=== PATIENT | female | born 1985 | race Caucasian/White ===

== ENCOUNTER 2018-06-12 08:11 | Observation (INO) | payer OTHER, SELFPAY ==
[2014-07-04 10:55] VITALS: BMI 28.0
[2018-06-12 08:06] VITALS: BMI 25.8
[2018-06-12] MEDS: Lactated Ringers 1,000 ML 999 ML IV (08:10)
[2018-06-12] MEDS: Betamethasone/Betamethasone 30 MG/5 ML Vial 12 MG IM (09:00)
[2018-06-12 10:55] VITALS: BP 103/61; PULSE 95; RESP 16; TEMP 37.1; O2SAT 98
[2018-06-12 13:04] LABS: Group B Strep DNA By PCR Negative (Negative); Internal Control PASS; Specimen Processing Control PASS
[2018-06-12 13:05] LABS: Probe Check PASS
--- NOTE | 2018-06-14 13:53 | OB.TRI.NOTE ---
History of Present Illness Date of Service: 06/12/18 Was patient seen by the physician?: Yes Reason For Visit: R/O LABOR History of Present Illness: 32-year-old female who reports contractions since 2 AM. Uncomfortable enough that she is having a hard time sleeping through them. No vaginal bleeding or leaking of fluid. Good movement. No threatened labor previously. History of previous section and plans repeat . 36 weeks ngestation Allergies No Known Allergies Allergy (Verified 06/12/18 08:08) Laboratory Studies: Laboratory Tests 06/12/18 Range/Units 10:45 Group B Strep DNA Negative (Negative) Specimen Comment Not Reportable Physical Exam Vitals: Vital Signs Temp Pulse Resp BP Pulse Ox 98.7 F 95 16 103/61 98 06/12/18 10:55 06/12/18 10:55 06/12/18 10:55 06/12/18 10:55 06/12/18 10:55 General: Alert, Cooperative, No apparent distress Abdomen: Soft, Non Tender, Non-Distended, Gravid, Appropriate for Gestational Age Estimated gestational size: Appropriate for gestational size Presentation: Cephalic Cervix Dilation (cm): 1 Station: -2 Effacement (%): 50 NST - FHR Rate Baby A Baseline: Normal baseline Variability:: Moderate Accelerations:: 15 x 15 Decelerations:: None NST Reactive:: Yes FHR Category:: Category I Uterine Activity:: Contractions q. 3-4 minutes Impression/Plan 32-year-old multigravida female at 36 weeks gestation with history of previous with threatened labor. Contractions been going on since 2 AM. They have not significantly worsened or improved. She has had no cervical change. heart tones are reassuring. At this point I discussed with the patient I do not feel she is in active labor. Discharge home, push fluids, call if spontaneous rupture membranes or worsening of contractions. Otherwise follow-up in the office in 2-7 days or as needed. Patient is comfortable with this plan. Received 1 dose of betamethasone, if contractions continue would give second dose otherwise will defer this as patient is already past 36 weeks.
== END 2018-06-12 11:10 | disposition home or self-care (01) ==
LOC: WPOUT 09:34
PROVIDERS: Admitting Provider Obstetrics & Gynecology; Family Provider Obstetrics & Gynecology; Visit Provider Obstetrics & Gynecology
DX: O60.03 Preterm labor without delivery, third trimester (principal); Z3A.36 36 weeks gestation of pregnancy; O34.219 Maternal care for unspecified type scar from previous cesarean delivery; N85.8 Other specified noninflammatory disorders of uterus
CPT/HCPCS: 96360; 96361 ×2; 59025; 59050; 76815; 87081; 87653; 96372; 99218; J7120; G0378; J0702

== ENCOUNTER 2018-07-05 09:00 | Inpatient (IN) | payer OTHER, SELFPAY ==
--- NOTE | 2018-07-03 14:23 | PCM.HP.BLA ---
History and Physical Date of Admission: 07/05/18 Pre-Op History and Physical ? HPI: The patient is a 32 year old female presenting for pre-operative visit. She is scheduled for?, for?39 3/7 weeks , previous c/s on?07/05/18. ??Procedure discussed along with risks, benefits and complications. ?Other alternatives discussed for management. Consent form signed??Yes.? PAST?MEDICAL?HISTORY PAST MEDICAL HISTORY Diagnosis Date ? Anemia complicating 04/18/2014 ? Miscarriage 04/2012 ? ? PAST?SURGICAL?HISTORY PAST SURGICAL HISTORY Procedure Laterality Date ? DELIVERY ONLY ? 07/04/14 ? , low transverse ? D&C, DIAG AND/OR THERAPEUTIC ? 04/13/2012 ? Dilation & curettage ? PAST SURGICAL HISTORY OF ? ? ? WISDOM TEETH ? ? CURRENT?MEDICATIONS ? Current Outpatient Medications: lanolin/mineral oil/sod borate (SKIN OILS TOPICAL) Apply to affected area. Essential oil with wild yam applied topically Disp: Rfl: DOCOSAHEXANOIC ACID ( DHA ORAL) Take ?by mouth. Disp: Rfl: VIT/IRON FUMARATE/FA ( ORAL) Take ?by mouth. ? Disp: Rfl: FOLIC ACID ORAL Take ?by mouth. ? Disp: Rfl: ? No current facility-administered medications for this visit.? ? ALLERGIES:?Patient has no known allergies. ? PERSONAL HISTORY:? SOCIAL?HISTORY Social History ??Socioeconomic History ?Marital status: ?Spouse name: Elia ?Number of children: 1 ?Years of education: 12 ?Highest education level: Not on file ??Social Needs ?Financial resource strain: Not on file ?Food insecurity - worry: Not on file ?Food insecurity - inability: Not on file ?Transportation needs - medical: Not on file ?Transportation needs - non-medical: Not on file ??Occupational History ?Occupation: SALES ?Employer: [employer] ??Tobacco Use ?Smoking status: Never Smoker ?Smokeless tobacco: Never Used ??Substance and Sexual Activity ?Alcohol use: Yes ?Comment: Rarely, not while ?Drug use: No ?Sexual activity: Yes ?Partners: Male ? control/protection: None ??Other Topics ?Concerns: ?Not on file ??Social History Narrative ?Not on file ? FAMILY HISTORY:? FAMILY?HISTORY FAMILY HISTORY Problem Relation Age of Onset ? No Known Problems Mother ? ? No Known Problems Father ? ? No Known Problems Sister ? ? No Known Problems Sister ? ? No Known Problems Brother ? ? Hypertension Maternal Grandmother ? ? Arthritis Maternal Grandmother ? ? No Known Problems Maternal Grandfather ? ? Stroke Paternal Grandmother ? ? No Known Problems Paternal Grandfather ? ? No Known Problems Son ? ? REVIEW OF SYMPTOMS: GENERAL: denies fevers or chills ENDOCRINOLOGY: has not been on steroids Cardiology : denies palpitations or chest pain Respiratory: denies SOB or cough, some normal PAZ from Hematology: denies history of prolonged bleeding or easy bruising or VTE Allergy: Denies history of personal or family history of allergy to anesthesia ? ? PHYSICAL EXAMINATION: ? VITALS:?Last menstrual period 10/07/2017. ? GENERAL:??The patient is well nourished, well hydrated in no acute distress. ?, The patient is oriented to time, place, and person. NECK:?Supple. No lynphadenopathy, normal thyroid, no thyromegaly. LUNGS:?Clear to auscultation bilaterally. no wheezes, rhonchi or rales HEART:?Regular rate and rhythm, Normal heart sounds and No murmurs or gallops abd- soft, nontender, gravid ? IMPRESSION:?39 3/7 weeks gestation on scheduled c/s on 07/05/18 ? PLAN:???The risks/benefits/alternatives and personal involved for the planned??were reviewed with the patient. Her questions were answered to her satisfaction and she desires to proceed. ?Consent was signed. ?I reviewed with her postop instructions and expectations. ? ? I have reviewed and updated past medical and surgical history, medications and allergies? This H&P was performed in my office 07/03/18 Vee Fuchs M.D.
[2018-07-05] VITALS (17 sets, daily range): BP systolic 100–111; BP diastolic 45–76; PULSE 69–88; RESP 12–18; TEMP 36.2–37.1; O2SAT 95–99; BMI 27.3
[2018-07-05] MEDS: Lactated Ringers 1,000 ML 999 ML IV (09:40)
[2018-07-05 09:57] LABS: Absolute Lymphocyte Count 1.71 X10^3/ul (0.83-4.51); Absolute Neutrophil Count 7.6 X10^3/uL (2.0-7.7); Eosinophil# 0.08 X10^3/uL; Eosinophils% 0.8 % (0-5); Hematocrit 33.3 % (37-47); Lymphocyte # 1.71 X10^3/ul (4.0); Lymphocyte % 17.2 % (19-41); Mean Corpuscular Hgb 30.7 pg (27.0-32.0); Mean Platelet Vol. 10.2 fl (6.2-12.0); Monocyte# 0.54 X10^3/uL; Monocyte% 5.4 % (0-10); Neutrophil % 76.2 % (47-70); Platelet Count 235 K/mm3 (150-450); RBC Distribution Width CV 14.3 % (11.6-14.6); RBC Distribution Width SD 48.4 fl (35.1-43.9); Red Blood Count 3.58 M/mm3 (4.2-5.4)
[2018-07-05 10:00] LABS: POSITIVE COUNT NO; POSITIVE DIFFERENTIAL NO; POSITIVE MORPHOLOGY NO
[2018-07-05] MEDS: Lactated Ringers 1,000 ML 150 ML IV (10:41)
[2018-07-05] MEDS: Cefazolin 2 GM in 0.9% Normal Saline 100 ML IV (12:06)
[2018-07-05] MEDS: Sodium Citrate/Citric Acid 30 ML UDC PO (12:06)
[2018-07-05] MEDS: Oxytocin 30 units/NS 500 ml 30 UNITS/500 ML IV.SOLN 167 UNITS IV (12:46)
[2018-07-05] MEDS: Ketorolac 30 MG/ML Syringe IV ×2 (13:15→18:51)
[2018-07-05] MEDS: Lactated Ringers 1,000 ML 100 ML IV (17:16)
--- NOTE | 2018-07-05 17:16 | PCM.OPRPT ---
Delivery Classification: Scheduled Final MANUEL: 07/09/18 Gestational age: 39 Weeks and 3 Days Indications for : Repeat Elective Description of Procedure: The patient was taken to the operating room. She was prepped and draped in the dorsal supine position with a leftward tilt. A Pfannenstiel skin incision was made approximately 2 cm above the symphysis pubis and carried through to underlying layer fascia with the scalpel. The fascia was incised incised in the midline and extended laterally with the Jade scissors. The fascia was dissected off the rectus muscles with blunt and sharp dissection. The rectus muscles were in the midline and the peritoneum was entered bluntly. The peritoneal incision was stretched and the bladder blade was placed. The uterine incision was made in a low transverse fashion with the scalpel and extended superiorly and inferiorly with blunt dissection. The amniotic membranes were ruptured bluntly and clear amniotic fluid returned. The 's head was brought to the incision in the flexed position and delivered without difficulty. The remainder of the infant was delivered with gentle traction and fundal pressure in the standard fashion. The mouth and nares were bulb suctioned. The cord was clamped and cut as the infant was stimulated. Cord clamping was delayed. The was handed off to the waiting nursing staff. The placenta was delivered with fundal massage and gentle traction in the standard fashion. The uterus was exteriorized and cleared of all clots and debris. The cervix was dilated with a ring forcep. The uterine incision was closed with #1 Vicryl in a running locked fashion. A second layer of the same suture was used in an imbricating fashion. A nxrxta-yl-[id number] suture was needed near the midline to secure a sinus. The incision was examined and was found to be hemostatic. The uterus was placed back into the peritoneal cavity and hemostasis was again confirmed. The rectus muscles were examined and any bleeding was Bovie cauterized. The parietal peritoneum and rectus muscles were closed en bloc with an 0 Vicryl running suture. The surgical teams outer gloves were then changed. The rectus fascia was examined and any bleeding was Bovie cauterized and the rectus fascia was closed with 1 Vicryl suture in a running standard fashion. The subcutaneous tissue was examining and any bleeding was Bovie cauterized. The subcutaneous tissue was reapproximated with 3-0 Vicryl suture. The skin was closed in a subcuticular fashion. I performed the entire procedure with assistance. All sponge, lap, and needle counts were correct. The patient was taken to her room for recovery in a stable condition. Amniotic Membrane Rupture Type: Spontaneous Amniotic Fluid Description: Clear Placenta Disposition: [facility] Specimen(s) sent to pathology: none Drain: Huber to straight drain Cord Entanglement: None Cord Vessel Description: 3 Vessels Esitmated Blood Loss (ml): 800 Infant Gender: Female (1 minute): 9 (5 minute): 9 Delayed cord clamping: Yes Pre-op Antibiotic Given: Ancef 2 grams IV x1 Complications: None - Admit VTE Documentation VTE Present on Admission: No VTE Mechan Device Prophylaxis: SCD's VTE Pharm Prophylaxis ordered?: No Reason prophylaxis not ordered:: Procedure Not Indicated
[2018-07-05] MEDS: Docusate Sodium 100 MG Capsule PO (22:12)
[2018-07-05] MEDS: Senna/Docusate Sodium 1 Tablet PO (22:12)
[2018-07-06] VITALS (12 sets, daily range): BP systolic 93–111; BP diastolic 47–67; PULSE 76–87; RESP 15–18; TEMP 36.5–36.9; O2SAT 94–97
[2018-07-06] MEDS: Ketorolac 30 MG/ML Syringe IV ×2 (01:03→06:20)
[2018-07-06] MEDS: 0.9% Saline Lock 10 ML Syringe IV ×2 (01:03→06:20)
[2018-07-06] MEDS: Lactated Ringers 1,000 ML 100 ML IV (01:06)
[2018-07-06 06:46] LABS: Hematocrit 27.9 % (37-47); Hemoglobin 9.3 g/dl (12.0-15.0); Mean Corp Hgb Conc 33.3 g/gl (32-36); Mean Corpuscular Hgb 31.3 pg (27.0-32.0); Mean Corpuscular Volume 93.9 fL (81-99); Mean Platelet Vol. 10.1 fl (6.2-12.0); Platelet Count 170 K/mm3 (150-450); RBC Distribution Width CV 14.5 % (11.6-14.6); Red Blood Count 2.97 M/mm3 (4.2-5.4); White Blood Count 9.7 K/mm3 (4.4-11.0)
[2018-07-06 06:56] LABS: Scan Indicated on CBC? Y/N NO
--- NOTE | 2018-07-06 08:33 | PN.OBGYN_ITS ---
Subjective: pain well controlled, average lochia. No N/V - Physical Exam General: Alert, Cooperative, No apparent distress Abdomen: Soft, Distended - mildly, softly, Tender - apporpriately Extremities: Edema - 1+ Skin: Incision - bandage clean, dry and intact Vital Signs Temp Pulse Resp BP Pulse Ox 97.8 F 85 16 100/59 L 95 07/06/18 07:42 07/06/18 07:42 07/06/18 07:42 07/06/18 07:42 07/06/18 07:42 Oxygen Delivery Method Room Air Weight: 70.125 kg Body Mass Index (BMI) 27.3 Intake and Output for Last 24 Hours 07/04/18 07/05/18 07/06/18 23:59 23:59 23:59 Intake Total 3611 / 3611 1348 / 1348 Output Total 800 / 800 800 / 800 Balance 2811 / 2811 548 / 548 Laboratory Tests Past 24 Hrs 07/05/18 07/05/18 07/06/18 09:40 09:40 06:00 WBC 10.0 9.7 RBC 3.58 L 2.97 L Hgb 11.0 L 9.3 L Hct 33.3 L 27.9 L MCV 93.0 93.9 MCH 30.7 31.3 MCHC 33.0 33.3 RDW 14.3 14.5 RDW Differential 48.4 H 49.0 H Plt Count 235 170 MPV 10.2 10.1 Immature Gran % (Auto) 0.400 Neut % (Auto) 76.2 H Lymph % (Auto) 17.2 L [place] % (Auto) 5.4 Eos % (Auto) 0.8 Baso % (Auto) 0.0 Absolute Neuts (auto) 7.6 Absolute Lymphs (auto) 1.71 Total Counted Not Reportable Blood Type A NEGATIVE Antibody Screen POSITIVE H Antibody Identification ANTI-D Medical Necessity - Tobacco Use Smoking Status: Never smoker Assessment/Plan POD#1 s/p repeat c/s doing welll routine care infant and doing wel
[2018-07-06] MEDS: Acetaminophen 500 MG Tablet 1000 MG PO ×2 (11:02→19:07)
[2018-07-06] MEDS: Senna/Docusate Sodium 1 Tablet PO ×2 (11:02→22:55)
[2018-07-06] MEDS: Naproxen 250 MG Tablet PO ×2 (13:15→22:55)
[2018-07-07] MEDS: Acetaminophen 500 MG Tablet 1000 MG PO ×2 (02:54→12:18)
[2018-07-07 02:55] VITALS: BP 97/54; PULSE 71; RESP 15; TEMP 36.9; O2SAT 97
[2018-07-07] MEDS: Naproxen 250 MG Tablet PO (06:25)
[2018-07-07] MEDS: Senna/Docusate Sodium 1 Tablet PO (09:55)
[2018-07-07 10:00] VITALS: BP 106/75; PULSE 78; RESP 16; TEMP 36.6
--- NOTE | 2018-07-07 10:46 | DCINST_ITS ---
Discharge Diet: No Restrictions Discharge Activity: May Not Drive - for 2 weeks or while taking narcotic pain meds., May Shower, May Take a Tub Bath - in 7 days. May resume sexual activity in: 4-6 weeks Lifting Restrictions: 20 pounds Additional Activity Instructions:: Nothing in the vagina for 4-6 weeks. You may return to work/school in 6 weeks. Call your doctor if your incision/area has: Continuous Slow Oozing, Sudden Increased Bleeding, Increased Pain/ Swelling, Increased Redness, Foul Smelling Discharge Call your doctor if you observe: Fever of 101 or Higher, Inability to urinate, Inability to have a bowel movement, Using more than one pad per hour, Uncontrolled pain Suture Line Care: Avoid Pulling/Pushing, Avoid Pinching/Bending Additional Instructions: If you experience any of the following, contact your healthcare provider. * Bleeding that soaks a pad every hour for 2 hours * Fever 100.4 or higher * Unrelieved incision or abdominal pain * Swelling, redness, discharge or bleeding from your incision or episiotomy site * Your incision begins to separate * Problems urinating (including inability to urinate or burning while urinating). * Visual changes * Severe headache * Flu-like symptoms * Pain or redness in one of both of your breasts * Pain, warmth, tenderness or swelling in your legs, especially the calf area * Frequent nausea and vomiting * Symptoms of depression or anxiety If you experience any of the following, call 911 or go to the nearest Emergency Room. * Chest pain * Problems breathing * Seizure activity * Partial or complete paralysis of a body part, slurred speech, weakness or drooping of the face, or a sudden inability to walk or hold your balance Allergies/Adverse Reactions: Allergies No Known Allergies Allergy (Verified 07/05/18 09:28) Medications to take at Discharge Ferrous Sulfate [Iron Supplement] 325 mg PO DAILY 07/04/14 Vits [Prenatabs FA ] 1 tablet PO DAILY 07/04/14 Magnesium 30 mg PO PRN PRN 07/05/18 Acetaminophen [Tylenol] 1,000 mg PO Q8H PRN tablet 07/07/18 Docusate Sodium [Colace] 100 mg PO BID capsule 07/07/18 Naproxen [Naprosyn] 250 - 500 mg PO Q8H PRN PRN tablet 07/07/18 Follow-Up: Call to make an appointment with your doctor for an incision check in 1-2 weeks. You will also need a 6 week post- follow up appointment. Test results from this visit will be discussed in further detail at your follow- up appointment, if applicable. Please Follow Up With: Vee Fuchs MD Primary Care Physician: Care Physician,No Primary [Primary Care Provider] - Proposed Discharge Date: 07/07/18
--- NOTE | 2018-07-07 10:46 | PCM.PN.OB ---
Subjective: Patient sitting up in chair at side of bed, denies any issues at this time. Reports a desire to be discharged to home at this time. Reports that incision pain is well controlled. Patient has not other issues. She is ambulating, urinating and changing positions without difficulty. Denies any other issues at this time. Objective: VSS, Afebrile Nipples without cracks or blisters, breasts filling and without erythema Abdomen NT x 4 quadrants, FF midline 2FB below umbilicus, dressing dry and intact no blood or exudate noted on dressing +2/4 reflexes in LE, no edema in LE, negative calf tenderness to palpation scant rubra lochia - Physical Exam General: Alert, Oriented x3, Cooperative HEENT: Atraumatic, Normocephalic Neck: Supple Lungs: Normal air movement Cardiovascular: Regular rate, Regular Rhythm, No murmurs Abdomen: Soft, Non Tender Extremities: No edema, Capillary Refill Less than 3 Seconds, No Calf Tenderness Skin: No rashes, No breakdown Musculoskeletal: No Tenderness to Palpation of Joints or Extremities Neurological: Cranial nerves II-XII grossly intact Psych/Mental Status: Normal Affect, Appropriate Vital Signs Temp Pulse Resp BP Pulse Ox 97.9 F 78 16 106/75 97 07/07/18 10:00 07/07/18 10:00 07/07/18 10:00 07/07/18 10:00 07/07/18 02:55 Oxygen Delivery Method Room Air Weight: 154 lb 9.6 oz Body Mass Index (BMI) 27.3 Intake and Output for Last 24 Hours 07/05/18 07/06/18 07/07/18 23:59 23:59 23:59 Intake Total 3611 / 3611 1348 / 1348 Output Total 800 / 800 1400 / 1400 Balance 2811 / 2811 -52 / -52 Medical Necessity - Tobacco Use Smoking Status: Never smoker Assessment/Plan 32 y/o s/p rpt LTCS, POD #2, Normal PP course P: 1) Discharge to home pending discharge 2) Anticipatory discharge teaching reviewed 3) RTC at 1-2 weeks for incision check and then at 6 weeks for PP visits to [facility] Miriam [place]
--- NOTE | 2018-07-07 13:01 | NURSING ---
1220 States she feels able to take care of herself and her and wants to go home today. Up and around in the room. Discharged to home via wheelchair with baby.
--- NOTE | 2018-07-13 16:23 | NURSING ---
follow up call done, patient denies needs or questions saw today and states all of her questions were answered there was satisfied with her care!
== END 2018-07-07 12:20 | disposition home or self-care (01) | DRG 788 ==
PROVIDERS: Admitting Provider Obstetrics & Gynecology; Referring Provider Obstetrics & Gynecology; Visit Provider Obstetrics & Gynecology
PROC: 10D00Z1 Extraction of Products of Conception, Low, Open Approach (ICD-10-PCS; CPT 59514; principal; 2018-07-05 12:15)
DX: O34.211 Maternal care for low transverse scar from previous cesarean delivery (principal); O99.02 Anemia complicating childbirth; D64.9 Anemia, unspecified; Z37.0 Single live birth; Z3A.39 39 weeks gestation of pregnancy; Z87.59 Personal history of other complications of pregnancy, childbirth and the puerperium
CPT/HCPCS: 85025; 85027; 86850; 86870; 86900; 99218; J7120; A4216; G0378; J2405

== ENCOUNTER → 2022-09-29 | Outpatient (CLI) | payer SELFPAY ==
[2022-10-03 22:07] LABS: HPV APTIMA, High Risk Negative (Negative)
== END | disposition home or self-care (01) ==
LOC: LABSPEC 12:45
PROVIDERS: Referring Provider Registered Nurse; Visit Provider Registered Nurse
DX: Z12.4 Encounter for screening for malignant neoplasm of cervix (principal)
CPT/HCPCS: 87624; 88175; G0145